=== PATIENT | male | born 1965 ===

== ENCOUNTER 2022-09-14 20:57 | Emergency (ER) | payer SELFPAY ==
[2022-09-14 21:07] VITALS: BP 141/84; PULSE 81; RESP 20; TEMP 36.6; O2SAT 98; BMI 27.9
--- NOTE | 2022-09-14 23:30 | ED.EAR ---
HPI - Ear Problem General Chief complaint: Ear Problems Stated complaint: earache Time Seen by Provider: 09/14/22 23:25 Source: patient Mode of arrival: ambulatory Limitations: no limitations History of Present Illness HPI Narrative: Patient with history of earwax problems complaining of pain in the left ear for the last 3 days no discharge no erythema the tray to put peroxide without much relief no fever no chills no headache Related Data Previous Rx's Medication Instructions Recorded amoxicillin 875 mg-potassium 1 tab PO BID #20 tabs 09/14/22 clavulanate 125 mg tablet carbamide peroxide 6.5 % ear drops 5 drp otic (ear) right DAILY 4 09/14/22 (Debrox) days #15 mL ibuprofen 600 mg tablet 600 mg PO Q6H PRN fever or pain 09/14/22 #30 tabs [id number] 3.3 4 drp otic (ear) left QID #10 mL 09/14/22 mg-3 mg-10 mg-0.5 mg/mL ear drops,susp (Cortisporin-TC) Allergies Allergy/AdvReac Type Severity Reaction Status Date / Time No Known Allergies Allergy Verified 09/14/22 21:12 Review of Systems Review of Systems: Yes all other systems are reviewed and are negative PMFSH Social History Social History Smoked in Last 30 Days: No Use of substances other than those prescribed or required for medical reasons: No Advance Directives: No Advance Directives Information Provided: No Physical Exam Vital Signs: Vital Signs: Last Vital Signs Temp 98 F 09/14/22 21:07 Pulse 81 09/14/22 21:07 Resp 20 09/14/22 21:07 BP 141/84 H 09/14/22 21:07 Pulse Ox 98 09/14/22 21:07 O2 Del Method Room Air 09/14/22 21:07 BMI result Body Mass Index 27.9 Const: Orientation/consciousness: patient oriented x3 HEENT: Head: Yes normal to inspection Ears: mastoids normal, no periauricular adenopathy, Abnormal EAC present cerumen impaction and EAC tenderness on the left and hearing grossly impaired bilaterally General nose exam: Normal external nose present and Normal nares present Face and sinus: Yes sinuses nontender Neuro: General: patient oriented x3 Medications Administered Discontinued Medications Generic Name Dose Route Start Last Admin Trade Name Freq PRN Reason Stop Dose Admin Amoxicillin/Clavulanate Potassium 875 mg 09/14/22 23:52 09/15/22 00:04 Amoxicillin/Potassium Clav 875 Mg Tablet PO 09/14/22 23:53 875 mg ONCE ONE Administration Ibuprofen 600 mg 09/14/22 23:52 09/15/22 00:04 Ibuprofen 600 Mg Tablet PO 09/14/22 23:53 600 mg ONCE ONE Administration Medical Decision Making Medical Decision Making MDM Narrative: Patient with impacted cerumen bilateral with tenderness in left ear likely has or at his externa possible media will discharge patient home on your drops and Augmentin Discharge Plan Discharge Clinical Impression: Otitis externa, Otitis media, Bilateral impacted cerumen Patient Disposition: Home, Self-Care Instructions: Otitis Externa (ED), Ear Infection (ED) Additional Instructions: Take antibiotics as prescribed Antibiotic Ear drops for left ear as advised Drops for wax removal as prescribed Follow-up with PCP as needed Prescriptions: New ibuprofen 600 mg tablet 600 mg PO Q6H PRN (Reason: fever or pain) Qty: 30 0RF amoxicillin-pot clavulanate 875-125 mg tablet 1 tab PO BID Qty: 20 0RF Cortisporin-TC 3.3-3-10-0.5 mg/mL drops,suspension 4 drp otic (ear) left QID Qty: 10 0RF Debrox 6.5 % drops 5 drp otic (ear) right DAILY 4 Days Qty: 15 0RF Interventions: ED Discharge Assessment Last Done: 09/15/22 00:07 Discharge Date/Time: 09/15/22 00:08
[2022-09-15] MEDS: Amoxicillin/Potassium Clav 875 MG TABLET PO (00:04)
[2022-09-15] MEDS: Ibuprofen 600 MG TABLET PO (00:04)
== END 2022-09-15 00:08 | disposition home or self-care (01) ==
PROVIDERS: Emergency Provider Internal Medicine
DX: H60.93 Unspecified otitis externa, bilateral (principal); H61.23 Impacted cerumen, bilateral; Z79.899 Other long term (current) drug therapy
CPT/HCPCS: 99283; 99284